=== PATIENT | female | born 1975 | race Caucasian/White ===

== ENCOUNTER → 2017-07-08 | Outpatient (CLI) | payer OTHER ==
[2017-07-08 16:38] LABS: Alanine Aminotransfer (ALT/SGP 23 U/L (12-78); Albumin, Blood 3.6 g/dL (3.4-5.0); Albumin/Globulin Ratio 1.1 (0.8-1.8); Alk Phos 70 U/L (50-136); Anion Gap 10 mmol/L (6-16); Aspartate Aminotrans (AST/SGOT 21 U/L (12-37); Blood Urea Nitrogen 12 mg/dL (8-24); CO2, Blood 25 mmol/L (21-32); Calcium, Blood 8.3 mg/dL (8.5-10.1); Chloride, Blood 107 mmol/L (98-108); Creatinine, Blood 0.67 mg/dL (0.40-1.00); Globulin, Blood 3.2 g/dL (2.2-4.0); Glomerular Filtration Rate >60 (60-); Glucose, Blood 86 mg/dL (70-99); Potassium, Blood 3.7 mmol/L (3.5-5.5); Sodium, Blood 142 mmol/L (136-145); Total Protein, Blood 6.8 g/dL (6.4-8.2)
== END ==
LOC: LAB SHORT 16:05
PROVIDERS: Internal Medicine Hematology & Oncology
DX: G04.81 Other encephalitis and encephalomyelitis (principal)
CPT/HCPCS: 80053

== ENCOUNTER 2019-03-24 11:25 | Day surgery (SDC) | payer OTHER ==
[~2019-03-24] VITALS: Ht 175.3 cm; Wt 79.8 kg
[~2019-03-24 11:25] MED LIST: Rituxan10 MG/ML IV; VITAMIN D35000 UNIT/ PO
[2019-03-24] MEDS ORDERED: DHEA (12:19)
--- NOTE | 2019-03-24 15:48 | NUR ---
03/24/19 1548 Yenny Ruano VSCandi IN RECOVERY, CLEAN PAD AND [place] PANTIES PLACED PRIOR TO TRANSFER TO RECLINER. KELLY AT CHAIRSIDE. PT TOLERATING PO FLUIDS AND COOKIES WELL. UPON ARRIVAL TO RECOVERY PT DENIES PAIN AND NAUSEA. PRIOR TO DISCHARGE, PT MEDICATED WITH PO PERCOCET FOR ABDOMINAL DISCOMFORT IN WHICH SHE RATES A 2. ABDOMEN SOFT, INCISION DRESSINGS CDI. CLEAN PAD PROVIDED PRIOR TO DISCHARGE. PT HAD MINIMAL RED BLOOD IN PAD.
== END 2019-03-24 15:38 | disposition home or self-care (01) ==
LOC: ORSCSDS 11:25
PROVIDERS: Obstetrics & Gynecology
PROC: 0UT74ZZ Resection of Bilateral Fallopian Tubes, Percutaneous Endoscopic Approach (ICD-10-PCS; principal; 2019-03-24 13:00)
PROC: 0U5F4ZZ Destruction of Cul-de-sac, Percutaneous Endoscopic Approach (ICD-10-PCS; principal; 2019-03-24 13:00)
PROC: 0UT04ZZ Resection of Right Ovary, Percutaneous Endoscopic Approach (ICD-10-PCS; principal; 2019-03-24 13:00)
DX: N83.291 Other ovarian cyst, right side (principal); Z30.2 Encounter for sterilization; N80.1 Endometriosis of ovary; N80.3 Endometriosis of pelvic peritoneum
CPT/HCPCS: 88302; 88305; J0171; J0690; J1100; J1885; J2250; J2370; J2405; J2704; J3010; J7120

== ENCOUNTER → 2020-12-06 | Outpatient (CLI) | payer OTHER ==
[~2020-12-06] MED LIST changes: +DHEA
[2020-12-06 15:11] LABS: Percent Saturation 21.3 % (15.0-50.0)
== END | disposition home or self-care (01) ==
LOC: LAB 14:01 → LAB SHORT 14:01
PROVIDERS: Internal Medicine Hematology & Oncology
DX: D50.0 Iron deficiency anemia secondary to blood loss (chronic) (principal)
CPT/HCPCS: 82728; 83540; 83550

== ENCOUNTER 2024-09-14 06:10 | Day surgery (SDC) | payer OTHER ==
[~2024-09-14] VITALS: Ht 175.3 cm; Wt 92.5 kg
[2024-09-14] MEDS ORDERED: CeFAZolin Sodium 2,000 MG VIAL ONE (06:29)
[2024-09-14] MEDS ORDERED: Lactated Ringer's 1,000 ML IV ONE ×2 (06:43→06:52)
[2024-09-14] MEDS ORDERED: Bupivacaine 0.5% W/EPI 1:200000 SDV 30 ML Vial ONE (06:50)
[2024-09-14] MEDS ORDERED: Midazolam HCl 1MG / ML 2ML Vial ONE (06:56)
[2024-09-14] MEDS ORDERED: propofoL 20 ML IV ONE (06:56)
[2024-09-14] MEDS ORDERED: FentaNYL Citrate 50 MCG/ML 2 ML Injection ONE (06:56)
[2024-09-14] MEDS ORDERED: Ondansetron HCl 2 MG / ML 2ML Vial ONE (06:57)
[2024-09-14] MEDS ORDERED: Dexamethasone Sod Phos 10 MG/ML 1ML VIAL ONE (06:57)
[2024-09-14] MEDS ORDERED: Ketorolac Tromethamine 30mg Vial ONE (06:57)
[2024-09-14] MEDS ORDERED: Glycopyrrolate 0.2 MG/ML 5ML VIAL ONE (07:43)
--- NOTE | 2024-09-14 08:26 | NUR ---
09/14/24 0826 CAMERON YEAGER CURRENTLY PT DENIES PAIN AND NAUSEA. EXTRA WARM BLANKETS GIVEN SHE IS COLD. PT DOING WELL. NO ISSUES
[2024-09-14 08:43] VITALS: BP 119/78
--- NOTE | 2024-09-14 08:58 | NUR ---
09/14/24 0858 Meagan Pereira PT. DENIES ANY PAIN OR NAUSEA. PT. UP TO RECLINER, STEADY ON HER FEET. PERIPAD IN PLACE, NO DRAINAGE. PT. DRINKING WATER & EATING P.O. SNACK. AT HER SIDE. V.S.S.
== END 2024-09-14 09:25 | disposition home or self-care (01) ==
LOC: ORSCSDS 06:10
PROVIDERS: Obstetrics & Gynecology
PROC: 0U5B8ZZ Destruction of Endometrium, Via Natural or Artificial Opening Endoscopic (ICD-10-PCS; principal; 2024-09-14 07:30)
DX: N92.1 Excessive and frequent menstruation with irregular cycle (principal); D50.0 Iron deficiency anemia secondary to blood loss (chronic); N94.6 Dysmenorrhea, unspecified; F41.9 Anxiety disorder, unspecified; J45.909 Unspecified asthma, uncomplicated
CPT/HCPCS: 88305; J0690; J1100; J1885; J2250; J2405; J2704; J3010; J7120

== ENCOUNTER → 2025-01-04 | Outpatient (CLI) | payer OTHER ==
[2025-01-04 19:27] LABS: Bilirubin, Urine Neg (Neg); Color, Urine Yellow (P-Yellow); Glucose Qualitative, Urine Neg (Neg); Ketones, Urine Neg (Neg); Leukocyte Esterase, Urine 1+ (Neg); Protein, Urine Neg (Neg); Specific Gravity, Urine 1.010 (1.003-1.022); Urobilinogen, Urine NORM (Normal)
[2025-01-04 20:18] LABS: Red Blood Cells, Urine 0-2 /hpf (0-2); White Blood Cells, Urine 0-2 /hpf (0-5)
== END ==
LOC: LAB SHORT 19:15 → LAB 19:15
PROVIDERS: Family Medicine
DX: M54.41 Lumbago with sciatica, right side (principal)
CPT/HCPCS: 81001; 87086